=== PATIENT | male | born 1990 | race Caucasian/White ===

== ENCOUNTER 2023-06-26 22:10 | Emergency (ER) | payer MEDICAID ==
[~2023-06-26] VITALS: Ht 185.4 cm; Wt 104.3 kg
[2023-06-26 22:19] VITALS: BP_SYST 132; PULSE 77; RESP 20; TEMP 97.8; O2SAT 99
[2023-06-26 23:57] VITALS: BP_SYST 132; PULSE 77; RESP 20; TEMP 97.8; O2SAT 99
== END 2023-06-26 23:57 | disposition home or self-care (01) ==
LOC: SED 22:10
DX: R07.89 Other chest pain (principal); R11.10 Vomiting, unspecified; R05.9 Cough, unspecified; Z79.899 Other long term (current) drug therapy
CPT/HCPCS: 93005; 99283